=== PATIENT | female | born 1975 | race Caucasian/White ===

== ENCOUNTER 2018-05-12 11:30 | Emergency (ER) | payer OTHER ==
--- OUTSIDE RECORDS SUMMARY | 2018-05-12 11:40 | XMS REPORT | Continuity of Care Document ---
:1975 External Reference #:[id number] Author Name Pam Hernández NP Address [address] [place] [address] Care Team Providers Name Role Phone Surinder Connor M.D., R.D. Care Team Information Anatomic Pathology Manager Unavailable Payers Type Date Identification Numbers Payment Provider Subscriber Effective: Policy Number: [id number] [employer] Radha Martell 2002 [employer] Expires: 2013 Group Name: [place] [address] PayID: [id number] [place] [address] Effective: 2013 Policy Number: [facility] Radha Martell [id number] PayID: [id number] [place] [address] Advance Directives Description No Information Available Problems Description No Active Problems Family History Date Family Member(s) Problem(s) Comments General Hypercholesterolemia General Diabetes Mellitus, Type II Maternal Uncles Diabetes Maternal Uncles Hypercholesterolemia Social History Type Date Description Comments Sex Unknown Diet Healthy, Well Balanced Tobacco Use Start: Unknown Never Smoked Cigarettes ETOH Use Denies alcohol use Tobacco Use Start: Unknown Patient has never smoked Smoking Status Reviewed: 05/05/18 Patient has never smoked Exercise Type/Frequency exercises regularly Allergies, Adverse Reactions, Alerts Date Description Reaction Status Severity Comments 07/31/2006 Zithromax Active SOB 06/26/2012 Cipro joint pain Active 11/02/2004 NKDA Inactive Medications Medication Date Status Form Strength Qnty SIG Indications Ordering Provider Gummi Bear 02/22 Active Chewtabs 1 by mouth Surinder Multivitamin/ every day dora Connor M.D., R.D. Fish Oil 02/22 Active Capsules 1000mg 1 by mouth /2015 every day Joey Connor, RCindy Ascensia 08/04 Active Kit 1unit Dx: Surinder Glucometer /2008 s hyperglycemi amanda Connor M.D., RCindy Ascensia Elite 08/04 Active Strips 50uni Use as Surinder Test Strips ts directed Joey Connor, RCindy Lancets 08/04 Active Misc 50uni Use as Surinder /2008 ts directed Joey Connor, R.D. Doxycycline 03/10 Hx Capsules 100mg 2caps 2 tab by Billy Monohydrate /2017 mouth once Tera - III, BUCKET CHUCKER-C 05/05 Physical 07/22 Hx as needed Surinder Therapy /2016 Marisol Connor M.D., R.DRoxi 05/05 Doxycycline 03/19 Hx Solution 100mg 2unit 2 tab by Yaneli Huerta /2016 Rec s mouth once Marisol Donohue-C 05/05 Osteopathic 11/03 Hx Patient to R10.9 Yaneli Physician /[address] Donohue, Referral - [facility] for BUCKET CHUCKER-C 02/22 evaluation of abdominal pain. Econazole 09/14 Hx Cream 1% 15gm apply to leg 110.5 Yaneli Nitrate area bid Marisol DonohueP-C 02/22 Doxycycline 02/11 Hx Tablets 100mg 2tabs 2 tab po Kaleb cl /2012 once Marisol Maza M.D. 03/13 Amoxicillin 12/12 Hx Capsules 500mg 10cap 1 po bid x 5 s days Marisol Maza M.D. 01/11 Ciprofloxacin 06/23 Hx Tablets 500mg 8tabs 1 po bid X 4 599.0 Yaneli HCL /2011 days Marisol Donohue-C 06/26 Ciprofloxacin 06/20 Hx Tablets 500mg 6tabs 1 po bid 599.0 Jessica HCL /2011 Marisol Mcclain M.D. 06/23 Mupirocin 05/31 Hx Ointment 2% 15gra Apply to 682.4 Jessica /2010 therese Osorio, - area bid M.DRoxi 06/20 Azithromycin 02/16 Hx Tablets 250mg 6tabs 1/2 po qd day x 12 Maza, - days M.D. 05/17 Bactrim DS 02/15 Hx Tablets 800-160mg 28tab 1 po bid for Shawnti R. s pertussis Storm, - exposure, BUCKET CHUCKER-C 06/20 take for days Mebendazole 10/20 Hx Chewtabs 100mg 2unit one po now s and repeat K.W. - in 2 weeks Ran 08/06 Joey Calcium-D 08/04 Hx Capsules 600-200mg -Unit Marisol Connor M.D., R.D. 04/05 Iron 08/04 Hx Tablets 325(65Fe) mg Marisol Connor M.D., R.D. 04/05 Xanax 10/06 Hx Tablets 0.25mg 20tab 1-2 tabs po Krysta A. s bid prn Marisol [facility] 12/08 Amoxicillin 09/02 Hx Capsules 500mg 30cap 1 po tid 466.0 Shawnti R. s with food Storm, - BUCKET CHUCKER-C 08/04 Albuterol 09/02 Hx Aerosol 90mcg/Act 1Inhl 2 puffs 466.0 r every 4-6 James, - hours if Joey, R.D. 12/08 needed for cough, wheeze or shortness of breath Nasonex 09/02 Hx Suspension 50mcg/Act 1Bott 2 sprays 477.9 Shawnti R. le each nostril Storm, - daily for BUCKET CHUCKER-C 08/04 rhinitis Multivitamins 07/15 Hx Tablets 1 PO qd Marisol Connor M.D., R.D. 02/22 Augmentin 07/31 Hx Tablets 875mg 28tab One bid X14 Krysta A. /2005 s Days Marisol [facility] 09/02 Zithromax 07/01 Hx Tablets 500mg 3tabs 1 qd x 3 461.8 Krysta Moses Tri-Jose Daniel /2005 days december, - repeat after F.N.P.C. 09/02 10 days sx persist Immunizations CPT Code Status Date Vaccine Lot # [id number] Given 08/10/2010 Td Age 7 to adult Decavac, Tenivac, [employer] [id number] Vital Signs Date Vital Result Comment 05/05/2018 3:35pm Weight 122.00 lb Weight 55.339 kg BP Systolic 102 mmHg BP Diastolic 60 mmHg Heart Rate 74 /min Body Temperature 98.5 F Respiratory Rate 16 /min 12/09/2017 1:39pm Weight 126.00 lb Weight 57.154 kg BP Systolic 98 mmHg BP Diastolic 68 mmHg Heart Rate 84 /min Body Temperature 98.1 F Respiratory Rate 16 /min O2 % BldC Oximetry 98 % 10/21/2017 3:41pm Weight 127.00 lb Weight 57.607 kg BP Systolic 90 mmHg BP Diastolic 62 mmHg Heart Rate 88 /min Body Temperature 101.0 F O2 % BldC Oximetry 98 % 03/05/2017 9:39am Weight 130.00 lb Weight 58.968 kg BP Systolic 108 mmHg BP Diastolic 62 mmHg Heart Rate 88 /min Body Temperature 97.0 F Respiratory Rate 18 /min Height 63.5 inches 5'3.50" BMI (Body Mass Index) 22.7 kg/m2 01/03/2017 11:03am Weight 131.00 lb Weight 59.422 kg BP Systolic 108 mmHg BP Diastolic 68 mmHg Heart Rate 76 /min Body Temperature 98.4 F Respiratory Rate 16 /min 06/26/2016 12:03pm Weight 131.00 lb Weight 59.422 kg BP Systolic 100 mmHg BP Diastolic 60 mmHg Heart Rate 64 /min Body Temperature 98.1 F Respiratory Rate 12 /min 02/23/2016 9:51am Weight 132.00 lb Weight 59.875 kg BP Systolic 90 mmHg BP Diastolic 60 mmHg Heart Rate 74 /min Height 64.5 inches 5'4.50" BMI (Body Mass Index) 22.3 kg/m2 Last Menstrual Period [id number] 12/28/2015 11:42am Weight 134.00 lb Weight 60.782 kg BP Systolic 90 mmHg BP Diastolic 60 mmHg Heart Rate 68 /min 11/08/2015 12:05pm Weight 127.00 lb Weight 57.607 kg BP Systolic 100 mmHg BP Diastolic 58 mmHg Heart Rate 70 /min Body Temperature 97.9 F 11/04/2015 11:20am Weight 129.00 lb Weight 58.514 kg BP Systolic 120 mmHg BP Diastolic 72 mmHg Heart Rate 72 /min O2 % BldC Oximetry 98 % On Room Air 01/03/2015 10:35am Weight 121.00 lb Weight 54.886 kg BP Systolic 90 mmHg BP Diastolic 52 mmHg Heart Rate 68 /min 12/31/2014 10:15am Weight 120.00 lb Weight 54.432 kg BP Systolic 110 mmHg BP Diastolic 62 mmHg Heart Rate 68 /min Body Temperature 98.5 F 09/14/2013 12:37pm BP Systolic 112 mmHg BP Diastolic 72 mmHg Heart Rate 72 /min 04/21/2013 11:51am Weight 122.00 lb Weight 55.339 kg BP Systolic 98 mmHg BP Diastolic 64 mmHg Heart Rate 76 /min Last Menstrual Period [id number] 04/05/2013 1:53pm Weight 121.00 lb Weight 54.886 kg BP Systolic 110 mmHg BP Diastolic 60 mmHg Heart Rate 64 /min Height 63.5 inches 5'3.50" BMI (Body Mass Index) 21.1 kg/m2 Last Menstrual Period [id number] 02/12/2013 3:54pm Weight 122.00 lb Weight 55.339 kg BP Systolic 140 mmHg BP Diastolic 80 mmHg Heart Rate 80 /min Body Temperature 98.3 F 12/08/2012 12:00pm Weight 123.00 lb Weight 55.793 kg BP Systolic 104 mmHg BP Diastolic 70 mmHg Heart Rate 80 /min Body Temperature 97.3 F Height 64 inches 5'4" BMI (Body Mass Index) 21.1 kg/m2 06/24/2012 10:58am BP Systolic 108 mmHg BP Diastolic 64 mmHg Heart Rate 68 /min Body Temperature 96.6 F 06/20/2012 11:33am BP Systolic 98 mmHg BP Diastolic 60 mmHg Heart Rate 76 /min Body Temperature 98.4 F 05/31/2011 11:40am Weight 117.00 lb Weight 53.071 kg BP Systolic 100 mmHg BP Diastolic 60 mmHg Heart Rate 84 /min Body Temperature 97.8 F 08/10/2010 2:18pm BP Systolic 106 mmHg BP Diastolic 70 mmHg Heart Rate 76 /min Body Temperature 97.9 F 08/06/2010 1:38pm Weight 120.00 lb Weight 54.432 kg BP Systolic 104 mmHg BP Diastolic 60 mmHg Heart Rate 108 /min Height 63.75 inches 5'3.75" BMI (Body Mass Index) 20.8 kg/m2 01/01/2010 12:19pm Weight 120.00 lb Weight 54.432 kg BP Systolic 100 mmHg BP Diastolic 64 mmHg Heart Rate 72 /min Body Temperature 98.7 F 08/04/2009 1:37pm Weight 122.00 lb Weight 55.339 kg BP Systolic 112 mmHg BP Diastolic 64 mmHg Heart Rate 76 /min Height 63.75 inches 5'3.75" BMI (Body Mass Index) 21.1 kg/m2 03/02/2009 2:14pm Weight 118.00 lb Weight 53.525 kg BP Systolic 88 mmHg BP Diastolic 52 mmHg Body Temperature 98.5 F 10/03/2008 10:47am Weight 114.00 lb Weight 51.710 kg BP Systolic 110 mmHg BP Diastolic 72 mmHg Heart Rate 76 /min Body Temperature 97.2 F O2 % BldC Oximetry 99 % 09/02/2008 9:32am Weight 120.00 lb Weight 54.432 kg BP Systolic 140 mmHg BP Diastolic 70 mmHg Heart Rate 74 /min Body Temperature 97.0 F oral O2 % BldC Oximetry 100 % 07/15/2008 1:50pm Weight 115.00 lb Weight 52.164 kg BP Systolic 110 mmHg BP Diastolic 60 mmHg Heart Rate 60 /min Height 64 inches 5'4" BMI (Body Mass Index) 19.7 kg/m2 Last Menstrual Period [id number] 07/18/2006 10:25am Weight 113.00 lb Weight 51.257 kg BP Systolic 100 mmHg BP Diastolic 60 mmHg Heart Rate 80 /min Body Temperature 97.0 F Height 63.5 inches 5'3.50" BMI (Body Mass Index) 19.7 kg/m2 07/01/2006 10:02am Weight 113.00 lb Weight 51.257 kg BP Systolic 100 mmHg BP Diastolic 52 mmHg Body Temperature 98.1 F oral Height 63.5 inches 5'3.50" BMI (Body Mass Index) 19.7 kg/m2 05/26/2006 10:10am Weight 116.00 lb Weight 52.618 kg BP Systolic 98 mmHg BP Diastolic 52 mmHg Heart Rate 64 /min Height 63.5 inches 5'3.50" BMI (Body Mass Index) 20.2 kg/m2 12/20/2005 1:38pm Weight 115.00 lb Weight 52.164 kg BP Systolic 94 mmHg BP Diastolic 52 mmHg Height 63.5 inches 5'3.50" BMI (Body Mass Index) 20.0 kg/m2 11/21/2005 11:38am Weight 117.00 lb Weight 53.071 kg BP Systolic 110 mmHg BP Diastolic 66 mmHg Heart Rate 76 /min Body Temperature 99.5 F Height 63.5 inches 5'3.50" BMI (Body Mass Index) 20.4 kg/m2 O2 % BldC Oximetry 98 % 11/02/2004 2:20pm Weight 121.00 lb Weight 54.886 kg BP Systolic 100 mmHg BP Diastolic 62 mmHg Body Temperature 97.0 F Height 63.5 inches 5'3.50" BMI (Body Mass Index) 21.1 kg/m2 07/28/2004 11:29am Weight 123.00 lb Weight 55.793 kg BP Systolic 110 mmHg BP Diastolic 70 mmHg Body Temperature 97.4 F Height 63.5 inches 5'3.50" BMI (Body Mass Index) 21.4 kg/m2 12/23/2002 1:40pm Weight 115.00 lb Weight 52.164 kg BP Systolic 100 mmHg BP Diastolic 60 mmHg Heart Rate 78 /min Respiratory Rate 18 /min Height 63.5 inches BMI (Body Mass Index) 20.0 kg/m2 Results Test Date Facility Test Result H/L Range Note Urine DIP 05/05/2018 [facility] Leukocytes neg Neg (607)- - Urine Nitrites neg Neg Urobilinogen norm Norm Total Protein, Urine neg Neg Urine pH 8 High 5-6 Urine Blood neg Neg Specific Anita 1.005 Low 1.01-1.02 Urine Ketones neg Neg Urine Bilirubin neg Neg Urine Glucose norm Norm Laboratory test 05/05/2018 [facility] TSH (Thyroid < pending> finding [phone] Stim Horm) Vitamin B12 <pending> Ferritin <pending> Laboratory test 05/05/2018 [facility] Hemoglobin A1c <pending> finding [phone] (Glyco HGB) Flu Test A, B, Or 10/21/2017 [facility] House [facility] Influenza A neg A & B,Binaxn (607)- - Antigen Influenza B Antigen pos Laboratory test 02/23/2016 [facility] Cytology SEE RESULT 1 finding [phone] BELOW HPV Rna Ww/Reflex Genotype Negative Negative 2 Urine DIP 02/23/2016 [facility] House [facility] Leukocytes neg Neg (607)- - Urine Nitrites neg Neg Urobilinogen norm Norm Total Protein, Urine neg Neg Urine pH 6 5-6 Urine Blood neg Neg Urine Ketones neg Neg Urine Bilirubin neg Neg Urine Glucose norm Norm Laboratory test finding 12/31/2014 [facility] House [facility] Hemoglobin 11.4 (607)- - Laboratory test finding 12/31/2014 [facility] HCG DIP Test POS Neg (607)- - Urine DIP 12/31/2014 [facility] Specific Anita 1.015 1.01-1.02 (607)- - Urine pH 8 High 5-6 Leukocytes neg Neg Urine Nitrites neg Neg Total Protein, Urine neg Neg Urine Glucose norm Norm Urine Ketones neg Neg Urobilinogen norm Norm Urine Bilirubin neg Neg Urine Blood neg Neg Human Papilloma 04/22/2013 [facility] Human Papillomavirus See Comment 3 Virus [phone] Source Human Papillomavirus High Risk Negative Negative 4 Urine DIP 04/21/2013 [facility] House Lab Leukocytes neg Neg (607)- - Urine Nitrites neg Neg Urine pH 9 High 5-6 Total Protein, Urine neg Neg Urine Glucose norm Norm Urine Ketones neg Neg Urobilinogen norm Norm Urine Bilirubin neg Neg Urine Blood neg Neg Specific Anita 1.00 Low 1.01-1.02 Laboratory test 04/21/2013 [facility] Cytology RUN DATE: 5 finding [phone] 04/22/ <SEE NOTE> Laboratory test 02/12/2013 [facility] Lyme Disease Negative Negative 6 finding [phone] Serology CBC Auto Diff 02/12/2013 [facility] White Blood 7.3 10^3/uL 4.8-10.8 [phone] Count Red Blood Count 4.43 10^6/uL 4.0-5.4 Hemoglobin 13.4 g/dL 12.0-16.0 Hematocrit 40 % 35-47 Mean Corpuscular Volume 90 fL 80-97 Mean Corpuscular Hemoglobin 30 pg 27-31 Mean Corpuscular HGB Conc 34 g/dL 31-36 Red Cell Distribution Width 13 % 10.5-15 Platelet Count 246 10^3/uL 150-450 Mean Platelet Volume 10 um3 7.4-10.4 Abs Neutrophils 4.6 10^3/uL 1.5-7.7 Abs Lymphocytes 2.2 10^3/uL 1.0-4.8 Abs Monocytes 0.4 10^3/uL 0-0.8 Abs Eosinophils 0.1 10^3/uL 0-0.6 Abs Basophils 0 10^3/uL 0-0.2 Abs Nucleated RBC 0.01 10^3/uL Granulocyte % 63.2 % 38-83 Lymphocyte % 29.4 % 25-47 Monocyte % 5.4 % 1-9 Eosinophil % 1.5 % 0-6 Basophil % 0.5 % 0-2 Nucleated Red Blood Cells % 0.1 Urine DIP 12/08/2012 [facility] House Lab Leukocytes ++ Neg (607)- - Urine Nitrites POS Neg Urine pH 8 High 5-6 Total Protein, Urine 30 High Neg Urine Glucose NORM Norm Urine Ketones NEG Neg Urobilinogen NORM Norm Urine Bilirubin NEG Neg Urine Blood 250 High Neg Specific Anita 1.01 1.01-1.02 Laboratory test 12/08/2012 In House Lab HCG DIP Test neg Neg finding (607)- - Urine Culture And 12/08/2012 [facility] Urine Culture (SEE NOTE) 7 Sensitivities [phone] Urine Culture And 06/24/2012 [facility] Urine Culture (SEE NOTE) 8 Sensitivities [phone] Urine Culture And 06/22/2012 [facility] Urine Culture (SEE NOTE) 9 Sensitivities [phone] Urine DIP 06/20/2012 [facility] House Lab Leukocytes POS Neg (607)- - Urine Nitrites POS Neg Urine pH 5 5-6 Total Protein, Urine 30+ High Neg Urine Glucose Neg Norm Urine Ketones Neg Neg Urobilinogen Neg Norm Urine Bilirubin Neg Neg Urine Blood 250+ High Neg Specific Anita N/A Low 1.01-1.02 CBC Auto Diff 04/27/2012 [facility] White Blood 13.6 CUMM High 4.8-10.8 [phone] Count Red Cell Count 3.93 CUMM Low 4.2-5.4 Hemoglobin 12.4 g/dL 12.0-16.0 Hematocrit 36 % 35-47 Mean Corpuscular Volume 92 um3 79-97 Mean Corpuscular Hemoglob 31 pg 27-31 Mean Corpuscular HGB Cone 34 g/dL 32-36 Redcell Distribution WDTH 14 % 10.5-15 Platelet Count 185 CUMM 150-450 Mean Platelet Volume 10.3 um3 7.4-10.4 Gran % 86.6 % High 38-83 Lymph % 8.1 % Low 20-45 Mononuclear % 4.6 % 1-9 Eosinophil % 0.3 % 0-6 Basophil % 0.4 % 0-2 Abs Lymphs 1.1 1.0-4.8 Abs Mononuclear 0.6 0-0.8 Absolute Neutrophil Count 11.8 High 1.5-7.7 Abs Eosinophils 0 0-0.6 Abs Basophils 0.1 0-0.2 PT W/Inr 04/27/2012 [facility] Inr 0.86 Low 0.88- 1.13 10 [phone] Protime 10.2 SEC Low 10.3-13.5 11 Laboratory test 04/27/2012 [facility] PTT (Aptt) 26.5 SEC 25.1-38.5 finding [phone] Comp Metabolic 04/27/2012 [facility] Sodium 136 mmol/ L 135-145 Panel [phone] Potassium 3.3 mmol/L Low 3.5-5.0 Chloride 107 mmol/L 101-111 Co2 (Carbon Dioxide) 25.0 mmol/L 22-32 Anion Gap 4.0 mmol/L 2-11 12 Glucose 109 mg/dL High 70-100 BUN 6 mg/dL 6-24 Creatinine 0.6 mg/dL 0.50-1.40 One Over Creatinine 1.66 BUN/Creatinine Ratio 10.0 8-20 Calcium 8.8 mg/dL 8.1-9.9 Total Protein 6.7 GM/DL 6.2-8.1 Albumin 3.8 GM/DL 3.6-5.4 Globulin 2.9 GM/DL 2-4 Albumin/Globulin Ratio 1.3 1-3 Bilirubin Total 0.5 mg/dL 0.4-1.5 13 Alkaline Phosphatase 64 U/L 30-110 Alt (SGPT) 27 U/L 14-54 Ast (Sgot) 27 U/L 12-42 eGFR Non- 111.3 > 60 eGFR 143.1 > 60 14 Laboratory test finding 04/27/2012 [facility] Lipase 26 U/L 22-51 [phone] BHCG Quantitative 166.0 MIU/ML High 0-5 15 Blood Culture 04/27/2012 [facility] M - 16 [phone] <SEE NOTE> Vaginal Dna 04/27/2012 [facility] M 17 Probe [phone] <SEE NOTE> GC/Chlamydia 04/27/2012 [facility] M - 18 Aptima [phone] <SEE NOTE> Urine Culture & 04/27/2012 [facility] M --- 19 Sensitivi [phone] <SEE NOTE> Urinalysis 04/27/2012 [facility] Ua Color YELLOW Yellow W/Microscopic [phone] Appearance-Urine CLEAR Clear Specific Anita-Ur 1.005 Low 1.010-1.030 Esterase-Urine 3+ Negative Nitrite NEGATIVE Negative [id number]-Za-NQM NEGATIVE Negative Protein-Urine TRACE Negative PH-Urine 7.5 5-9 Blood-Urine 3+ Negative Ketones-Urine NEGATIVE Negative Bilirubin-Ur NEGATIVE Negative Glucose-Urine NEGATIVE Negative WBC-Urine 5-10 0-5 20 RBC-Urine 0-2 0-2 Epith Cells-Ur MODERATE None Bacteria-Urine TRACE None Xray 08/06/2010 [facility] [facility] Sonogram-Breast SEE ORDER 09/07/10 [facility] CHECK-IN # [id number] Urine DIP 08/06/2010 [facility] House [facility] Leukocytes NEG Neg (607)- - Urine Nitrites NEG Neg Urine pH 5 5-6 Total Protein, Urine NEG Neg Urine Glucose NORM Norm Urine Ketones NEG Neg Urobilinogen NORM Norm Urine Bilirubin NEG Neg Urine Blood NEG Neg Specific Anita N/A Low 1.01-1.02 Laboratory test 08/06/2010 [facility] Amylase 71 U/L 20-120 21 finding [phone] Lipase 30 U/L 22-51 Helicobacter Pylori Igm AB Negative Negative Helicobacter Pylori Igg AB <0.75 Index () 22 Liver Function 08/06/2010 [facility] Total Protein 6.5 GM/DL 6.2-8.1 Panel [phone] Albumin 4.2 GM/DL 3.6-5.4 Globulin 2.3 GM/DL 2-4 Albumin/Globulin Ratio 1.8 1-3 Bilirubin Total 0.5 mg/dL 0.4-1.5 23 Bilirubin Direct 0.1 mg/dL 0.1-0.5 Indirect Bilirubin 0.4 mg/dL 0.3-1.0 24 Alkaline Phosphatase 53 U/L 30-110 Alt (SGPT) 20 U/L 14-54 Ast (Sgot) 23 U/L 12-42 Tick 06/05/2010 [facility] Tick TEST 25 Identification [phone] Identification RESULT RETU <SEE NOTE> Laboratory test 08/04/2009 [facility] Lyme 0.34 Negative 26, finding [phone] Disease,Igg/Igm INDEX 27 TSH (Thyrotropin) 0.960 uIU/ml 0.350-5.500 T-4 Free 0.8 ng/dL 0.8-1.8 T-3 Total 131.6 ng/dL 87.0-216.0 Hemoglobin A1c 08/04/2009 [facility] Hemoglobin A1c 5.4 % 28 [phone] Estimated Avg Glucose 108.3 mg/dL Laboratory test 08/04/2009 [facility] Glucose 89 mg/dL 70-100 finding [phone] Lipid Panel 08/04/2009 [facility] Cholesterol, 175 mg/dL <200 [phone] Total Triglycerides 112 mg/dL <150 HDL Cholesterol 52 mg/dL 40-60 Chol/HDL Cholesterol 3.4 29 LDL Cholesterol, Calc. 101 mg/dL 30 LDL/HDL Cholesterol 1.9 31 Laboratory test 03/02/2009 In House Lab Glucose By 137 High 78-110 finding (607)- - Moniter Laboratory test 10/03/2008 [facility] Throat Normal 32 finding [phone] Culture pharyngea <SEE NOTE> CBC 10/03/2008 [facility] WBC 5.9 x103 4.3-10.9 [phone] RBC 4.52 x106 3.80-5.30 Hemoglobin 13.0 g/dL 11.8-15.8 Hematocrit 40.2 % 35.0-47.0 MCV 88.9 fl 82.0-98.0 MCH 28.8 pg 27.5-33.5 MCHC 32.3 g/dL 32.0-36.0 RDW 13.7 % 11.5-14.5 Platelet Count 210 x103 130-400 MPV 12.9 fl High 6.5-10.5 Segmented Neutrophils 62.9 % 44.0-74.0 Lymphocytes 28.8 % 15.0-45.0 Monocytes 6.7 % 2.0-13.0 Eosinophils 1.3 % 0.0-6.0 Basophils 0.3 % 0.0-2.0 Neutrophil Absolute 3.7 x103 1.4-7.0 Lymphocytes Absolute 1.7 x103 1.0-3.4 Monocyte Absolute 0.4 x103 0.2-1.0 Eosinophil Absolute 0.1 x103 0.0-0.5 Basophil Absolute 0.0 x103 0.0-0.2 Laboratory test 10/03/2008 [facility] Sedimentation Rate 2 MM/HR 0-20 finding [phone] Antinuclear AB (Alyson) NEGATIVE Negative Glucose 84 mg/dL 70-100 CBC With 09/30/2008 [facility] White Blood 8.2 CUMM 4.8-10.8 Electronic Diff [phone] Count Stat Red Cell Count 4.46 CUMM 4.2-5.4 Hemoglobin 13.4 g/dL 12.0-16.0 Hematocrit 39 % 35-47 Mean Corpuscular Volume 86 um3 79-97 Mean Corpuscular Hemoglob 30 pg 27-31 Mean Corpuscular HGB Cone 35 g/dL 32-36 Redcell Distribution WDTH 13 % 10.5-15 Platelet Count 212 CUMM 150-450 Mean Platelet Volume 9.6 um3 7.4-10.4 Gran % 79.9 % 38-83 Lymph % 15.8 % Low 25-47 Mononuclear % 3.9 % 1-9 Eosinophil % 0.1 % 0-6 Basophil % 0.3 % 0-2 Abs Lymphs 1.3 1.0-4.8 Abs Mononuclear 0.3 0-0.8 Absolute Neutrophil Count 6.6 1.5-7.7 Abs Eosinophils 0 0-0.6 Abs Basophils 0 0-0.2 33 CMP Stat 09/30/2008 [facility] Sodium 136 mmol/L 135-145 [phone] Potassium 3.5 mmol/L 3.5-5.0 Chloride 105 mmol/L 101-111 Co2 (Carbon Dioxide) 25.0 mmol/L 22-32 Anion Gap 6.0 mmol/L 2-11 34 Glucose 135 mg/dL High 70-100 35 BUN 7 mg/dL 6-24 Creatinine 0.70 mg/dL 0.50-1.40 One Over Creatinine 1.40 BUN/Creatinine Ratio 10.0 8-20 Calcium 9.4 mg/dL 8.1-9.9 36 Total Protein 6.3 GM/DL 6.2-8.1 Albumin 3.9 GM/DL 3.6-5.4 Globulin 2.4 GM/DL 2-4 Albumin/Globulin Ratio 1.6 1-3 Bilirubin Total 0.7 mg/dL 0.4-1.5 Alkaline Phosphatase 54 U/L 30-110 Alt (SGPT) 19 U/L 14-54 Ast (Sgot) 24 U/L 12-42 Laboratory 09/30/2008 [facility] TSH 0.83 MIU/ML 0.34-5.60 test finding [phone] DS3 09/30/2008 [facility] Amphetamines NONE None Detect [phone] Urine Screen DETECTED Barbituates Urine Screen NONE DETECTED None Detect Benzodiazepine Ur Screen NONE DETECTED None Detect Cannabinoid Urine Screen NONE DETECTED None Detect Cocaine Metabolites Urine NONE DETECTED None Detect Opiates Urine Screen NONE DETECTED None Detect PCP Urine Screen NONE DETECTED None Detect 37 Laboratory test 07/15/2008 [facility] Thin Prep SEE NOTE 38 finding [phone] W/HPV(Lsil/WILLIS/Asc) HPV, High Risk Only Negative for hig <SEE NOTE> 39 Laboratory 07/15/2008 [facility] TSH 0.780 0.350-5.500 40 test finding [phone] (Thyrotropin) uIU/ml Glucose 79 mg/dL 70-100 Comprehens.+ Hepatic 07/15/2008 [facility] BUN 12 mg/dL 4-18 [phone] Creatinine, Serum 0.9 mg/dL 0.5-1.2 Sodium 139 mmol/L 136-146 Potassium 4.1 mmol/L 3.5-5.3 Chloride 106 mmol/L 98-110 Carbon Dioxide 25 mmol/L 20-32 Albumin 4.6 g/dL 3.5-4.7 Protein, Total 6.8 g/dL 6.4-8.3 Calcium 9.8 mg/dL 8.4-10.4 Alkaline Phosphatase 57 U/L 10-118 Sgot (Ast) 27 U/L 3-40 SGPT (Alt) 19 U/L 7-50 Bilirubin, Total 0.30 mg/dL 0.30-1.20 Bilirubin, Direct 0.10 mg/dL 0.00-0.40 Bilirubin, Indirect 0.20 mg/dL 0.10-1.10 CBC 07/15/2008 [facility] WBC 7.4 x103 4.3-10.9 [phone] RBC 4.49 x106 3.80-5.30 Hemoglobin 13.3 g/dL 11.8-15.8 Hematocrit 39.3 % 35.0-47.0 MCV 87.5 fl 82.0-98.0 MCH 29.6 pg 27.5-33.5 MCHC 33.8 g/dL 32.0-36.0 RDW 13.0 % 11.5-14.5 Platelet Count 219 x103 130-400 MPV 12.0 fl High 6.5-10.5 Segmented Neutrophils 59.9 % 44.0-74.0 Lymphocytes 30.0 % 15.0-45.0 Monocytes 6.3 % 2.0-13.0 Eosinophils 3.5 % 0.0-6.0 Basophils 0.3 % 0.0-2.0 Neutrophil Absolute 4.4 x103 1.4-7.0 Lymphocytes Absolute 2.2 x103 1.0-3.4 Monocyte Absolute 0.5 x103 0.2-1.0 Eosinophil Absolute 0.3 x103 0.0-0.5 Basophil Absolute 0.0 x103 0.0-0.2 Laboratory test 07/15/2008 [facility] GFR (Calculated) >60 41 finding [phone] Vitamin D, 25 Oh 26.0 ng/mL Low 32.0-100.0 42 Urine DIP 07/15/2008 [facility] House Lab Leukocytes neg Neg (607)- - Urine Nitrites neg Neg Urine pH 5 5-6 Total Protein, Urine neg Neg Urine Glucose norm Norm Urine Ketones neg Neg Urobilinogen norm Norm Urine Bilirubin neg Neg Urine Blood neg Neg Specific Anita n/a Low 1.01-1.02 CBC 07/01/2006 [facility] WBC 10.4 x103 4.3-10.9 [phone] RBC 4.29 x106 3.80-5.30 Hemoglobin 12.4 g/dL 11.8-15.8 Hematocrit 37.0 % 35.0-47.0 MCV 86.2 fl 82.0-98.0 MCH 28.9 pg 27.5-33.5 MCHC 33.5 g/dL 32.0-36.0 RDW 14.4 % 11.5-14.5 Platelet Count 222 x103 130-400 MPV 10.8 fl High 6.5-10.5 Segmented Neutrophils 73.9 % 44.0-74.0 Lymphocytes 19.2 % 15.0-45.0 Monocytes 5.6 % 2.0-13.0 Eosinophils 0.8 % 0.0-6.0 Basophils 0.5 % 0.0-2.0 Neutrophil Absolute 7.7 x103 High 1.4-7.0 Lymphocytes Absolute 2.0 x103 1.0-3.4 Monocyte Absolute 0.6 x103 0.2-1.0 Eosinophil Absolute 0.1 x103 0.0-0.5 Basophil Absolute 0.1 x103 0.0-0.2 Food Allergy 05/26/2006 [facility] Interpretation * * 43 Panel [phone] Beef <0.35 kU/L --- Class 0 Oat 3.82 kU/L --- Class III [place] <0.35 kU/L --- Class 0 Egg <0.35 kU/L --- Class 0 Cod/Sara <0.35 kU/L --- Class 0 Milk <0.35 kU/L --- Class 0 Peanut <0.35 kU/L --- Class 0 Pork <0.35 kU/L --- Class 0 Soybean <0.35 kU/L --- Class 0 Wheat <0.35 kU/L --- Class 0 Laboratory 11/21/2005 [facility] TSH (Thyrotropin) 1.230 0.350-5.500 test finding [phone] uIU/ml GFR (Calculated) >60 44 [facility] Metabolic 11/21/2005 [facility] Glucose 80 mg /dL 70-100 [phone] BUN 11 mg/dL 4-18 Creatinine, Serum 1.0 mg/dL 0.5-1.2 Sodium 140 mmol/L 136-146 Potassium 4.3 mmol/L 3.5-5.3 Chloride 102 mmol/L 98-110 Carbon Dioxide 26 mmol/L 20-32 Albumin 4.9 g/dL High 3.5-4.7 Protein, Total 7.5 g/dL 6.4-8.2 Calcium 9.2 mg/dL 8.4-10.4 Alkaline Phosphatase 65 U/L 10-118 Sgot (Ast) 23 U/L 3-30 SGPT (Alt) 14 U/L 7-40 Bilirubin, Total 0.44 mg/dL 0.30-1.20 Urine DIP 07/28/2004 [facility] Leukocytes NEG Neg (607)- - Urine Nitrites NEG Neg Urine pH 5 5-6 Total Protein, Urine NL Neg Urine Glucose NL Norm Urine Ketones NL Neg Urobolinogen NL Norm Urine Bilirubin NL Neg Urine Blood NL Neg Specific Anita N/A Low 1.01-1.02 Urine DIP 12/23/2002 [facility] Leukocytes NEG Neg (607)- - Urine Nitrites NEG Neg Urine pH 5 5-6 Total Protein, Urine NL Neg Urine Glucose NL Norm Urine Ketones NL Neg Urobolinogen NL Norm Urine Bilirubin NL Neg Urine Blood NL Neg Specific Anita N/A Low 1.01-1.02 Comp Metabolic 12/23/2002 [facility] Albumin/Globulin Ratio 1.5 1-3 Panel [phone] Albumin 4.0 GM/DL 3.6-5.4 BUN 13 mg/dL 6-24 Calcium 9.8 mg/dL 8.7-10.2 Chloride 100 mmol/L Low 101-111 Co2 (Carbon Dioxide) 30.0 mmol/L 22-32 Creatinine 0.9 mg/dL 0.5-1.4 Globulin 2.7 GM/DL 2-4 Glucose 91 mg/dL 70-105 Potassium 4.3 mmol/L 3.5-5.0 Sodium 137 mmol/L 135-145 Total Protein 6.7 GM/DL 6.2-8.1 BUN/Creatinine Ratio 14.4 8-20 Alkaline Phosphatase 62 U/L 30-110 Alt (SGPT) 15 U/L 14-54 Ast (Sgot) 20 U/L 12-42 Bilirubin Total 0.4 mg/dL 0.4-1.5 Lipid Profile 12/23/2002 [facility] Cholesterol/HDL 3.56 1-4.44 (Trig/Chol/HDL) [phone] Ratio AVERAGE Cholesterol 139 mg/dL Less Than 200 45 Triglyceride 122 mg/dL 40-200 High Density Lipoprotein 39 mg/dL Low 40-60 46 Low Density Lipoprotein 76 mg/dL Less Than 100 47 CBC With 12/23/2002 [facility] Platelet Count 254 CUMM 150-450 Electronic Diff [phone] White Blood Count 8.4 CUMM 4.8-10.8 Abs Basophils 0 0-0.2 Abs Eosinophils 0.1 0-0.6 Abs Grans 5.6 1.5-7.7 Abs Lymphs 2.2 1.0-4.8 Abs Mononuclear 0.5 0-0.8 Basophil % 0.1 % 0-2 Hematocrit 37 % 35-47 Hemoglobin 12.6 g/dL 12.0-16.0 Eosinophil % 1.0 % 0-6 Gran % 66.7 % 38-83 Lymph % 26.5 % 20-45 Mean Corpuscular HGB Cone 34 g/dL 32-36 Mean Corpuscular Hemoglob 30 pg 27-31 Mean Corpuscular Volume 88 um3 79-97 Mean Platelet Volume 9.6 um3 7.4-10.4 Mononuclear % 5.7 % 1-9 Red Cell Count 4.27 CUMM 4.2-5.4 Redcell Distribution WD 12 % 10.5-15 1 SEE RESULT BELOW Name: RADHA MARTELL : [address]: Surinder Connor MD Acct: [id number] Unit: [id number] AGE: 40 Location: [facility] Re02/23/16 SEX: F Status: REG REF SPEC: [id number] NEFTALY: 02/23/[address]: Surinder Connor MD REQ: [id number] RECD: 02/23/16 STATUS: SOUT _ ORDERED: IMAGE ANALYSIS, HPV/Thin Prep, HPV 16/18 GENE COMMENTS: [id number] FINAL DIAGNOSIS Negative for Intraepithelial lesion or Malignancy A. Ectocervical/Endocervical Specimen Adequacy: Satisfactory of evaluation Transformation zone component identified Patient Information: HPV: High risk HPV RNA testing regardless of pap results. HPV 16/18 Genotype Reflex Actual Specimen Date: 02/23/16 Last Menstrual Date: 01/21/16 Date of Last Specimen: 04/21/13 Date Time Test Result Flag (u) Normal Range 02/23/16 1058 HPV RNA RFLX GE Negative Negative The high-risk HPV types detected by the assay include: 16, 18, 31, 33, 35, 39, 45, 51, 52, 56, 58, 59, 66, and 68. Signed (signature on file) KILEY Oswald (ASCP) 02/26 1307 This Pap test was evaluated with the assistance of the [email or web address] Test Imaging System. Due to cytologic findings at the relay associate microscope, comprehensive manual rescreening by a Satellite Installation Technician may be required. The Pap Smear is a screening test designed to aid in the detection of premalignant and malignant conditions of the uterine cervix. It is not a diagnostic procedure and should not be used as the sole means of detecting cervical cancer. Both false- positive and false- negative reports do occur. Depending on your risk status, a Pap smear should be obtained and evaluated every 1-3 years. END OF REPORT * ML=Testing performed at Main Lab DEPARTMENT OF PATHOLOGY, [address] [place] [address] Gerardo Sargent M.D. Director [facility] # [id number] 2 The high-risk HPV types detected by the assay include: 16, 18, 31, 33, 35, 39, 45, 51, 52, 56, 58, 59, 66, and 68. 3 RESULT: Ectocervical/Endocervical 4 For types 16, 18, 31, 33, 35, 39, 45, 51, 52, 56, 58, 59 and 68. Test Performed by: [facility] - [address] [address] Service Officer: Mundo Oneal III, M.D. 5 RUN DATE: 04/22/13 [facility] LAB LIVE PAGE 1 RUN TIME: [address] [place] [address] Specimen Inquiry Name: RADHA MARTELL : [address]: Surinder Connor MD Acct: [id number] Unit: [id number] AGE: 37 Location: [facility] Re04/21/13 SEX: F Status: REG REF SPEC: [id number] NEFTALY: 04/21/13-[address]: Surinder Connor MD REQ: [id number] RECD: 04/21/13 STATUS: SOUT _ ORDERED: IMAGE ANALYSIS, HPV / Thin Prep FINAL DIAGNOSIS Negative for Intraepithelial lesion or Malignancy COMMENTS: Specimen sent to [facility] in [place], [place] on 04/22/13 by [id number] at 1029. Results will be reported separately. A. Ectocervical/Endocervical Specimen Adequacy: Satisfactory of evaluation Transformation zone component identified Patient Information: HPV: High risk HPV DNA testing regardless of pap results. Actual Specimen Date: 04/21/13 Last Menstrual Date: 04/02/13 Signed (signature on file) Mendez Amos KILEY (ASCP) 04/22 1147 This Pap test was evaluated with the assistance of the [employer] Test Imaging System. Due to cytologic findings at the relay associate microscope, comprehensive manual rescreening by a Satellite Installation Technician may be required. The Pap Smear is a screening test designed to aid in the detection of premalignant and malignant conditions of the uterine cervix. It is not a diagnostic procedure and should not be used as the sole means of detecting cervical cancer. Both false- positive and false- negative reports do occur. Depending on your risk status, a Pap smear shoudl be obtained and evaluated every 1-3 years. END OF REPORT * ML=Testing performed at Main Lab DEPARTMENT OF PATHOLOGY, [address] [place] [address] Gerardo Sargent M.D. Director [facility] Permit #[id number] 6 Serologic response to B. burgdorferi infection is not detected, but cannot rule out early infection during which low or undetectable antibody levels to B. burgdorferi may be present. If clinically indicated, a new serum specimen should be submitted in 7-14 days. Test Performed by: [address] [address] Service Officer: Mundo Oneal III, M.D. 7 RUN DATE: 12/11/12 [facility] LAB LIVE PAGE 1 RUN TIME: [address] [place] [address] Specimen Inquiry Name: RADHA MARTELL : [address]: Yaneli Donohue NP Acct: [id number] Unit: [id number] AGE: 37 Location: [facility] Re12/08/12 SEX: F Status: REG REF SPEC: [id number] NEFTALY: 12/08/12-[address]: Yaneli Donohue NP REQ: [id number] RECD: 12/08/12 STATUS: COMP _ SOURCE: URINE SPDESC: ORDERED: Urine Culture QUERIES: Med[employer] Number [id number] Procedure Result Verified Site Urine Culture Final 12/11/12- 1105 ML Organism 1 STAPHYLOCOCCUS SAPROPHYTICUS [place] Count 50-75,000 (Many) CFU/ML Routine sensitivity testing of urine isolates of S. saprophyticus is not advised, because infections respond to concentrations achieved in urine of antimicrobial agents commonly used to treat acute, uncomplicated urinary tract infections (e.g. nitrofurantoin, trimethoprim+/- sulfamethoxazole, or a fluoroquinolone). [facility] August 2001 END OF REPORT * ML=Testing performed at Main Lab DEPARTMENT OF PATHOLOGY, [facility] [employer] [place], [place] [address] Gerardo Sargent M.D. Director [facility] Permit #[id number] 8 RUN DATE: 06/26/12 [facility] LAB LIVE PAGE 1 RUN TIME: 903 [facility] [employer] [place], [place] [address] Specimen Inquiry Name: RADHA MARTELL : [address]: Yaneli Donohue NP Acct: [id number] Unit: [id number] AGE: 37 Location: [facility] Re06/24/12 SEX: F Status: REG REF SPEC: [id number] NEFTALY: 06/24/[address]: Yaneli Donohue NP REQ: [id number] RECD: 06/24/12 STATUS: COMP _ SOURCE: URINE SPDESC: ORDERED: Urine Culture QUERIES: [employer] Number [id number] Urine Source: Random Procedure Result Verified Site Urine Culture Final 06/26/12- 04 ML No Growth Day 2 (<1,000 CFU/mL) END OF REPORT * ML=Testing performed at Main Lab DEPARTMENT OF PATHOLOGY, [address] [place] [address] Gerardo Sargent M.D. Director [facility] Permit #[id number] 9 RUN DATE: 06/24/12 [facility] LAB LIVE PAGE 1 RUN TIME: 0849 [address] [facility], [place], [place] [address] Specimen Inquiry Name: ALLYNRADHA D : [address]: Jo BAER,Jessica Marrufo Acct: [id number] Unit: [id number] AGE: 37 Location: [facility] Re06/22/12 SEX: F Status: REG REF SPEC: [id number] NEFTALY: 06/22/12-[address]: Jessica Osorio MD REQ: [id number] RECD: 06/22/12 STATUS: PAL PAGAN DR: _ SOURCE: URINE SPDESC: ORDERED: Urine Culture QUERIES: Med[employer] Number [id number] Procedure Result Verified Site Urine Culture Final 06/24/12- 0848 ML Organism 1 ESCHERICHIA COLI [place] Count 75-100,000 (Many) CFU/ML 1. ESCHERICHIA COLI M.I.C. RX --------- ------ Amikacin <=2 S Ampicillin <=2 S * Ampicillin/Sublactam <=2 S Cefazolin <=4 S Cefepime <=1 S Cefoxitin <=4 S Ceftazidime <=1 S Ceftriaxone <=1 S Ciprofloxacin <=0.25 S Gentamicin <=1 S Imipenem <=1 S Levofloxacin <=0.12 S Nitrofurantoin <=16 S Piperacillin <=4 S Tigecycline <=0.5 S Trimethoprim/Sulfamethoxazole <=20 S * These antibiotics are not available in the [facility] Formulary Contact the Microbiology Department for any additional antibiotic reporting. END OF REPORT * ML=Testing performed at Main Lab DEPARTMENT OF PATHOLOGY, [address] [place] [address] Gerardo Sargent M.D. Director [facility] Permit #[id number] 10 Recommended INR for Patients on Oral Anticoagulants Prophylaxis 2.0 - 3.0 Treatment of thrombosis 2.0 - 3.0 Prevention of embolism 2.0 - 3.0 Prevention of embolism from prosthetic heart valves 2.5 - 3.5 11 DIAGNOSIS,TREATMENT,AND THERAPY MUST BE BASED ON THE INR VALUE ALONE. 12 Anion gap measurement may be of limited value in the presence of any alkalosis, especially in a combined acid base disorder. . 13 A metabolite of Naproxen, O-desmethylnaproxen, has been shown to interfere with the Jendrassik-Almaz method for measuring total bilirubin. Samples from patients who have taken Naproxen have shown spurious elevation in total bilirubin levels. 14 Because ethnic data is not always readily available, this report includes an eGFR for both -Americans and non- Americans. The National Kidney Disease Education Program (NKDEP) does not endorse the use of the MDRD equation for patients that are not between the ages of 18 and 70, are , have extremes of body size, muscle mass, or nutritional status, or are non- or non-. According to the National Kidney Foundation, irrespective of diagnosis, the stage of the disease is based on the level of kidney function: Stage Description GFR(mL/min/1.73 m(2)) 1 Kidney damage with normal or decreased GFR 90 2 Kidney damage with mild decrease in GFR 60-89 3 Moderate decrease in GFR 30-59 4 Severe decrease in GFR 15-29 5 Kidney failure <15 (or dialysis) 15 * MALES: < 5.0 MIU/ML NON FEMALES < 5.0 MIU/ML APPROX GESTATIONAL AGE APPROX HCG RANGE 0-1 WEEK < 5.0-50 1-2 WEEKS 50-500 2-3 WEEKS 100-5000 3-4 WEEKS 500-10,000 1-2 MONTHS 10,000-200,000 2-3 MONTHS 15,000-100,000 PLEASE NOTE: The intended use of this assay is the quantitative determination of HCG in human serum or plasma for the early detection of . These assays should not be used to diagnose any condition unrelated to . If an HCG level is inconsistent with, or unsupported by, clinical evidence, results should be confirmed by an alternate HCG method. . 16 RUN DATE: 05/03/12 [facility] NMI LIVE PAGE 1 RUN TIME: 325 Specimen Inquiry RUN USER: INTERFACE Name: RADHA MARTELL Antonette Status: DEP ER Re04/27/12 Age/Sex: 37/F Unit#: [id number] Location: : [birth year] SPEC #: [id number] NEFTALY: 04/27/12 STATUS: COMP REQ #: [id number] RECD: 04/28/[address] [facility] [address]: Vicky BAERJimbo SOURCE: BLOOD ENTR: 04/27/12-[address]: James BAER, Surinder Kovacs SPDESC: BLOOD,VENO ORDERED: BLOOD CULTURE ACT WKST: 04/28/12 #1 Procedure Result Verified Site > AEROBIC CULTURE BOTTLE Final 05/03/12- 6 ML NO GROWTH AFTER 5 DAYS > ANAEROBIC CULTURE BOTTLE Final 05/03/12- 6 ML NO GROWTH AFTER 5 DAYS - [facility] Permit #[id number] [address] [place] [address] DEPARTMENT OF PATHOLOGY, [address] [place] [address] [facility] Permit #[id number] Joey Salazar M.D. Evaporator Supervisor 17 RUN DATE: 04/28/12 [facility] NMI LIVE PAGE 1 RUN TIME: 1057 Specimen Inquiry RUN USER: INTERFACE Name: RADHA MARTELL Antonette Status: DEP ER Re04/27/12 Age/Sex: 37/F Unit#: [id number] Location: MARGIE Swartz : [birth year] SPEC #: [id number] NEFTALY: 04/27/12 STATUS: PAL REQ #: [id number] RECD: 04/27/[address]: Jimbo Perry MD SOURCE: VAGINAL ENTR: 04/27/[address]: James BAER, [facility]: AFFIRM Procedure Result Verified Site > VAGINAL DNA PROBE Final 04/28/12- 1057 ML TRICHOMONAS NEGATIVE GARDNERELLA NEGATIVE DAY SPP NEGATIVE The presence of G. vaginalis, although suggestive, is not diagnostic for bacterial vaginosis. Results should be interpreted in conjunction with other clinical and laboratory data available. Women with vaginal discharge should be evaluated for risk factors of cervicitis and pelvic inflammatory disease, toxic shock syndrome (S.aureus), and if present, evaluated for organisms not included in this assay such as N. gonorrhoeae, C. trachomatis, Mobiluncus, Mycoplasma and/or Prevotella. Mixed infections may occur. The performance of this test on patient specimens collected during or immediately after antimicrobial therapy is unknown. The presence or absence of Day species, G. vaginalis or T. vaginalis cannot be used as a test for therapeutic success or failure. - [facility] Permit #[id number] [address] [place] [address] DEPARTMENT OF PATHOLOGY, [address] [place] [address] [facility] Permit #[id number] Gerardo Sargent M.D. Director Brook Roberson M.D. Evaporator Supervisor 18 RUN DATE: 04/28/12 [facility] NMI LIVE PAGE 1 RUN TIME: 1536 Specimen Inquiry RUN USER: INTERFACE Name: RADHA MARTELL Status: FREDY ROMANO Re04/27/12 Age/Sex: 37/F Unit#: [id number] Location: MARGIE Barreto. : [birth year] SPEC #: [id number] NEFTALY: 04/27/12 STATUS: PAL LAIRD #: [id number] RECD: 04/27/[address] [facility] [address]: Jimbo Perry MD SOURCE: ENDOCERVIX ENTR: 04/27/[address] [facility] [address]: James BAER, Surinder Kovacs [facility]: ORDERED: GC/CHL APTIMA Procedure Result Verified Site > CHLAMYDIA TRACHOMATIS RNA Final 04/28/12- 1536 ML NEGATIVE FOR CHLAMYDIA TRACHOMATIS rRNA A negative result does not preclude the presence of a C.trachomatis or N.gonorrhoeae infection because results are dependent on adequate specimen collection, absence of inhibitors, and sufficient rRNA to be detected. Test results may be affected by improper specimen collection, improper specimen storage, technical error, or specimen mixup. Limitations of the Procedure: The Aptima Combo 2 Assay is not intended for the evaluation of suspected sexual abuse or for other medico-legal indications. For those patients for whom a false positive result may have adverse psychosocial impact, the [facility] recommends retesting by a method using an alternate technology. Therapeutic failure or success cannot be determined with the Aptima Combo 2 Assay since nucleic acid may persist following appropriate antimicrobial therapy. Results from the APTIMA Combo 2 Assay should be interpreted in conjunction with other laboraotry and clinical data available to the clinician. Performance characteristics for detecting C. trachomatis and N. gonorrhoeae are derived from high prevalence populations. Positive results in low prevalence populations should be interpreted carefully with the understanding that the likelihood of a false positive may be higher than a true positive. > GC (N. GONORRHOEAE) RNA Final 04/28/12- 1536 ML NEGATIVE FOR NEISSERIA GONORRHOEAE rRNA DEPARTMENT OF PATHOLOGY, [address] [place] [address] [facility] Permit #[id number] Joey Salazar M.D. Evaporator Supervisor RUN DATE: 04/28/12 [facility] NMI LIVE PAGE 2 RUN TIME: 1536 Specimen Inquiry RUN USER: INTERFACE Name: RADHA MARTELL Status: DEP ER Re04/27/12 Age/Sex: 37/F Unit#: [id number] Location: [facility]. : [birth year] -- -- CONTINU ED Procedure Result Verified Site GC (N. GONORRHOEAE) RNA Final (continued) 04/28/12- 1536 A negative result does not preclude the presence of a C.trachomatis or N.gonorrhoeae infection because results are dependent on adequate specimen collection, absence of inhibitors, and sufficient rRNA to be detected. Test results may be affected by improper specimen collection, improper specimen storage, technical error, or specimen mixup. Limitations of the Procedure: The Aptima Combo 2 Assay is not intended for the evaluation of suspected sexual abuse or for other medico-legal indications. For those patients for whom a false positive result may have adverse psychosocial impact, the [facility] recommends retesting by a method using an alternate technology. Therapeutic failure or success cannot be determined with the Aptima Combo 2 Assay since nucleic acid may persist following appropriate antimicrobial therapy. Results from the APTIMA Combo 2 Assay should be interpreted in conjunction with other laboraotry and clinical data available to the clinician. Performance characteristics for detecting C. trachomatis and N. gonorrhoeae are derived from high prevalence populations. Positive results in low prevalence populations should be interpreted carefully with the understanding that the likelihood of a false positive may be higher than a true positive. [facility] Permit #[id number] [facility] [employer] [place] [address] DEPARTMENT OF PATHOLOGY, [facility] [employer] [place] [address] [place] Permit #[id number] Gerardo Sargent M.D. Director Brook Roberson M.D. Evaporator Supervisor 19 RUN DATE: 04/30/12 [facility] NMI LIVE PAGE 1 RUN TIME: 947 Specimen Inquiry RUN USER: INTERFACE Name: RADHA MARTELL Status: FREDY ROMANO Re04/27/12 Age/Sex: 37/F Unit#: [id number] Location: MARGIE Swartz : [birth year] SPEC #: [id number] NEFTALY: 09/ STATUS: COMP REQ #: [id number] RECD: 04/27/[address]: Jimbo Perry MD SOURCE: URINE ENTR: 04/27/[address]: James BAER, Surinder Kovacs [facility]: ORDERED: URINE C S ACT WKST: UR 04/30/12 #1 Procedure Result Verified Site > URINE CULTURE SENSITIVI Final 04/30/12- 0948 ML Organism 1 BETA STREP GROUP A Susceptibility testing of penicillins and other B-lactams approved by FDA for treatment of Streptococcus pyogenes (Group A Strep) and Streptococcus agalactiae (Group B Strep) is not necessary for clinical purposes and need not be done routinely, since as with vancomycin, resistant strains have not been recognized. (CLSI I697-T60;p.66) Positive isolates will be saved for one week. Please call the Microbiology Laboratory if further susceptibility testing is needed. COLONY COUNT 25-50,000 ORGANISMS/ML (MODERATE) Organism 2 NORMAL OPAL COLONY COUNT 25-50,000 ORGANISMS/ML (MODERATE) ML - [facility] [place] Permit #[id number] [address] [place] [address] DEPARTMENT OF PATHOLOGY, [facility] DATES [place], [place] [address] [facility] Permit #[id number] Gerardo Sargent M.D. Director Brook Roberson M.D. Evaporator Supervisor 20 CARMELINAER CELLS 21 PLEASE NOTE NEW REFERENCE RANGE. 22 -- REFERENCE VALUE -- <0.75 (negative) 0.75-0.99 (equivocal) >=1.00 (positive) Test Performed by: [facility] Dpt of Lab Med and Pathology [address] [place], [place] [address] Service Officer: Mundo Oneal III, M.D. 23 A metabolite of Naproxen, O-desmethylnaproxen, has been shown to interfere with the Jendrnasreenik-Almaz method for measuring total bilirubin. Samples from patients who have taken Naproxen have shown spurious elevation in total bilirubin levels. 24 Please note updated reference range, effective 03/15/10 25 TEST RESULT RETURNED FROM REFERENCE LABORATORY AND HARDCOPY SENT TO PHYSICIAN(S) OFFICE. 26 FASTING 27 < or=0.80 Negative 0.81 - 1.20 Equivocal >1.20 Positive 28 HGBA1C (%) GLUCOSE CONTROL <6 NORMAL >=6.5 SUGGESTIVE OF DIABETES 29 CHOL/HDL Risk Ratio Levels MALE FEMALE 1/2 X Average 3.4 3.3 Average 5.0 4.4 2 X Average 9.5 7.0 3 X Average 24.0 11.0 30 Optimal under 100 mg/dl Near or above Optimal 100 - 129 mg/dl Borderline High 130 - 159 mg/dl High 160 - 189 mg/dl Very High above 190 mg/dl 31 LDL/HDL Risk Ratio Levels MALE FEMALE 1/2 X Average 1.0 1.5 Average 3.6 3.2 2 X Average 6.3 5.0 3 X Average 8.0 6.1 32 Normal pharyngeal opal 33 Lymphopenia % 34 Anion gap measurement may be of limited value in the presence of any alkalosis, especially in a combined acid base disorder. . 35 Note change in reference range as of 04/14/08. The change was based on recommendations from the [place] [employer]. 36 Please note change in reference range effective 08 . 37 THE URINE SPECIMEN WAS TESTED AT THE LISTED CUTOFFS: DRUG CLASS TEST LEVEL (NG/ML) AMPHETAMINES 300 BARBITUATES 200 BENZODIAZEPINE METABOLITES 200 COCAINE METABOLITES 300 CANNABINOIDS 25 OPIATES 200 PCP 25 THIS IS A SCREENING PROCEDURE. POSITIVE RESULTS ARE NOT CONFIRMED. SPECIMEN WAS RECEIVED WITHOUT CHAIN OF CUSTODY. RESULTS SHOULD BE USED FOR MEDICAL PURPOSES ONLY. . 38 [employer] DEPARTMENT OF PATHOLOGY or Extension [phone] [facility] CYTOLOGY REPORT PATIENT: RADHA MARTELL : 1975 AGE: 33 Y SEX: F ACCT: [id number] PROCEDURE DATE: 07/15/2008 DATE RECEIVED: 07/18/2008 REQUESTING PHYSICIAN: SURINDER CONNOR MD LOCATION: [facility] Case No. [id number] PATIENT DATA: [id number] SPECIMEN SUBMITTED: * * (HPVII) THIN PREP W/HPV (LSIL/ASC/WILLIS) * * CERVICAL/ENDOCERVICAL RELEVANT HISTORY: LMP: 06/14/2008 SPECIMEN ADEQUACY SATISFACTORY FOR EVALUATION, ENDOCERVICAL TRANSFORMATION ZONE COMPONENT PRESENT GENERAL CATEGORIZATION EPITHELIAL CELL ABNORMALITY: SEE "INTERPRETATION/RESULT" INTERPRETATION/ RESULT ATYPICAL SQUAMOUS CELLS OF UNDETERMINED SIGNIFICANCE. RECOMMENDATIONS Follow-up as clinically indicated. Refer to separate report for HPV test results. See www.asccp.org and articles in Am J of Obstet Gynecol 2007 Oct; 197(4), for current consensus recommendation guidelines. ADDITIONAL COPIES SENT TO: Screened/Rescreened by: Electronically Signed by: AGUEDA AREVALO MD PATHOLOGIST Signed Date and Time: 07/20/2008 14:18 Thin Prep Pap tests are examined with an FDA-approved location-guidance system (67656). Performed @ [facility] [address] [place] [address] "" 39 Negative for high/intermediate risk HPV types 16/18/31/33/35/39/45/51/52/56/58/59/68 40 I added a vit D level 07/16/08. MM 41 mL/min/1.73m2 . Normal Function or Mild Renal Disease, if clinically at risk: >or=60 Moderately decreased: 30 - 59 Severely decreased: 15 - 29 Renal Failure: <15 . Please note that the MDRD equation requires an additional adjustment for -Americans (multiply the GFR result by 1.210). . Glomerular Filtration Rate (GFR) is estimated based on the MDRD equation, which assumes a steady state for creatinine (Maryam Int Med 139/2 137-149, 2003), as recommended by the National Kidney Disease Education Program in conjunction with the National Institutes of Health and the National Kidney Foundation. . Clinical conditions in which it may be necessary to measure GFR by using clearance methods include extremes of age and body size, severe malnutrition or obesity, diseases of skeletal muscle, paraplegia or quadriplegia, vegetarian diet, rapidly changing kidney function, and calculation of the dose of potentially toxic drugs that are excreted by the kidneys. 42 Recent studies consider the lower limit of 32.0 ng/mL to be a threshold for optimal health. Saul BAXTER. J Nutr. 2004;135(2):317-22. 43 . Levels of Specific IgE Class Description of Class <0.35 kU/L O Absent/Undetectable 0.35 - 0.70 kU/L I Low 0.70 - 3.50 kU/L II Moderate 3.60 - 17.50 kU/L III High 17.50 - 50.00 kU/L IV Very High 50.00 - 100.00 kU/L V Very High >100.00 kU/L Very High 44 mL/min/1.73m2 . Normal Function or Mild Renal Disease, if clinically at risk: >or=60 Moderately decreased: 30 - 59 Severely decreased: 15 - 29 Renal Failure: <15 . Please note that the MDRD equation requires an additional adjustment for -Americans (multiply the GFR result by 1.210). . Glomerular Filtration Rate (GFR) is estimated based on the MDRD equation, which assumes a steady state for creatinine (Maryam Int Med 139/2 137-149, 2003), as recommended by the National Kidney Disease Education Program in conjunction with the National Institutes of Health and the National Kidney Foundation. . Clinical conditions in which it may be necessary to measure GFR by using clearance methods include extremes of age and body size, severe malnutrition or obesity, diseases of skeletal muscle, paraplegia or quadriplegia, vegetarian diet, rapidly changing kidney function, and calculation of the dose of potentially toxic drugs that are excreted by the kidneys. . 45 Classification: Desirable . 46 Classification: Low . 47 CALCULATED LDL APPROXIMATES THE VALUE OF A DIRECT LDL MEASUREMENT. Classification: Optimal Level . Procedures Date Code Description Status 09/02/2008 49046 Oximetry - Single Study Completed 11/21/2005 36105 Spirometry Completed Encounters Type Date Location Provider Dx Diagnosis Office Visit 05/05/2018 3:30p Main Office Pam Hernández NP R53.83 Other fatigue Z83.3 Family history of diabetes mellitus Z00.00 Encntr for general adult medical exam w/o abnormal findings M25.50 Pain in unspecified joint Office Visit 12/09/2017 Main Office Billy Haley M26.602 Left temporomandibular 1:30p III, BUCKET CHUCKER-C joint disorder, unspecified Office Visit 10/21/2017 Main Office Billy Haley J06.9 Acute upper respiratory 3:30p III, BUCKET CHUCKER-C infection, unspecified Office Visit 03/05/2017 Main Office Surinder Z00.00 Encntr for general 9:30a James, adult medical exam w/o M.D., R.D. 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 unspecified Office Visit 06/26/2016 11:45a Main Office Yaneli Donohue, R23.8 Other skin changes [facility]UCK[facility]-C Office Visit 02/23/2016 9:30a Main Office Surinder Connor, Z00.00 Encntr for general M.D., R.D. 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 keratosis Office Visit 11/08/2015 11:45a Main Office Surinder Connor S23.41xD Sprain of ribs, M.D., R.D. subsequent encounter K21.9 Gastro-esophageal reflux disease without esophagitis Office Visit 11/04/2015 11:15a Main Office Yaneli Donohue, R10.9 Unspecified BUCKET CHUCKER-C abdominal pain Office Visit 01/03/2015 10:00a Main Office Yaneli Donohue, 995.3 Allergy Unspec [facility] 724.5 Backache Unspec Office Visit 12/31/2014 10:15a Main Office Yaneli Donohue, 789.9 Abdomen & Pelvis [facility]-C Symptoms Other Office Visit 09/14/2013 12:15p Main Office Yaneli Donohue, 110.5 Dermatophytosis Body [facility]-C Office Visit 04/21/2013 11:45a Main Office Surinder Connor, V72.31 Routine Nuclear Medicine Officer M.D., R.D. Examination 228.09 Hemangioma Other Sites 574.71 Calculus Gallbladder & Bile Duct Other Cholecystitis W/ Obst Office Visit 04/05/2013 1:45p Main Office Surinder Connor, V70.0 Examination General M.D., R.D. Medical Routine AT Health Care Facility 789.02 Pain Abdominal Left Upper Quadrant Office Visit 02/12/2013 4:00p Main Office Yaneli Donohue, 916.5 Injury Superficial [facility]UCK[facility]-C Insect Bite Hip Thigh Leg Ankle Nonve Inf Office Visit 12/08/2012 12:00p Main Office Yaneli Donohue, 599.0 UTI Urinary Tract [facility]-C Infection Site Not Spec Office Visit 06/24/2012 10:45a Main Office Yaneli Donohue, 599.0 UTI Urinary Tract BU[facility]ET CHUCKER-C Infection Site Not Spec Office Visit 06/20/2012 11:30a Main Office Jessica Cleaning 599.0 UTI Urinary Tract Joey Osorio Infection Site Not Spec Office Visit 05/31/2011 11:30a Main Office Jessica Cleaning 682.4 Cellulitis & Joey Osorio Abscess Hand Except Fingers & Thumb 785.6 Lymph Nodes Enlargement Office Visit 08/10/2010 3:00p Main Office Cher Mccloud 883.0 Open Wound Joey Tong Finger(S) W/O Complication V06.5 Tetanus Diphtheria (DT) Office Visit 08/06/2010 1:30p Main Office Surinder Connor, V70.0 Examination General M.D., R.D. Medical Routine AT Health Care Facility 611.72 Lump Or Mass Breast 789.9 Abdomen & Pelvis Symptoms Other Office Visit 01/01/2010 12:15p Main Office Surinder Connor, 723.1 Cervicalgia Joey, RChalino. Office Visit 08/04/2009 1:30p Main Office Surinder Connor, V70.0 Examination General Joey, R.Antonette. Medical Routine AT Health Care Facility 790.6 Abnormal Blood Chemistry Other 780.79 Malaise And Fatigue Other 780.4 Dizziness & Giddiness 784.0 Headache 786.09 Dyspnea & Respiratory Abnormalities Other 787.02 Nausea Alone Office Visit 03/02/2009 2:00p Main Office Franco Medrano, 780.4 Dizziness & BUCKET CHUCKER-C Giddiness 780.79 Malaise And Fatigue Other V22.2 State Incidental Normal Office Visit 10/03/2008 10:30a Main Office Surinder Connor M.D., R.Sheridan 786.2 Cough 995.3 Allergy Unspec 784.0 Headache 786.09 Dyspnea & Respiratory Abnormalities Other Office Visit 09/02/2008 10:00a Main Office Franco Medrano, 466.0 Bronchitis Acute [facility]-C 477.9 Rhinitis Allergic Cause Unspec Office Visit 07/15/2008 1:45p Main Office Surinder Connor, V72.31 Routine Nuclear Medicine Officer Joey, RChalino. Examination Office Visit 07/18/2006 10:15a Main Office Krysta ARoxi 461.8 Sinusitis Acute Raina, F.N.P.C. Other 785.6 Lymph Nodes Enlargement Office Visit 07/01/2006 10:00a Main Office Krysta ARoxi 461.8 Sinusitis Acute Raina, F.N.P.C. Other 785.6 Lymph Nodes Enlargement Office Visit 05/26/2006 10:45a Main Office Krysta ARoxi 786.09 Dyspnea & Raina, Respiratory F.N.P.C. Abnormalities Other 995.3 Allergy Unspec Office Visit 12/20/2005 1:30p Main Office Krysta ARoxi 786.09 Dyspnea & Raina, Respiratory F.N.P.C. Abnormalities Other Office Visit 11/21/2005 11:30a Main Office Krysta Aurelia 786.09 Dyspnea & Raina, Respiratory F.N.P.C. Abnormalities Other Office Visit 11/02/2004 2:30p Main Office Krysta Moses 786.2 Cough Raina, F.N.P.C. 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 Plan of Treatment Future Appointment(s):06/26/2018 1:15 pm - Surinder Connor M.D., R.D. at [facility]05/05/2018 - Pam Hernández, NPR53.83 Other fatigueComments: No acute concerns today.MM had ordered labs previously, therefore, patient will get those completed today as part of evaluation.I will obtain a urinePatient will follow up with MMEducated on new/worsening symptoms and when to call/ return. Patient stated understanding and agrees to planZ83.3 Family history of diabetes [id number] Encntr for general adult medical exam w/o abnormal gjfhhxgaT90.50 Pain in unspecified joint
[2018-05-12 11:56] VITALS: BP 121/69
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
== END 2018-05-12 13:03 | disposition home or self-care (01) ==
LOC: UCEAST 11:30
DX: R42 Dizziness and giddiness (principal); M62.9 Disorder of muscle, unspecified; R11.0 Nausea; Z88.3 Allergy status to other anti-infective agents
CPT/HCPCS: 99202; G0463